=== PATIENT | male | born 1945 | race Caucasian/White ===

== ENCOUNTER → 2016-05-01 | Outpatient (CLI) | payer OTHER ==
[~2016-05-01] MED LIST: AMLO-114 PO; CZR50 PO; IBUP-1277 PO; OFLO0.3S OPR; PRLSR20 PO
== END | disposition home or self-care (01) ==
LOC: C.RDSM 07:28
PROVIDERS: ATTEND Physical Medicine & Rehabilitation Sports Medicine
DX: M17.0 Bilateral primary osteoarthritis of knee (principal)

== ENCOUNTER → 2017-04-30 | Outpatient (CLI) | payer OTHER | END | disposition home or self-care (01) | LOC: C.RDSM 19:12 | PROVIDERS: ATTEND Physical Medicine & Rehabilitation Sports Medicine | DX: M17.0 Bilateral primary osteoarthritis of knee (principal) ==

== ENCOUNTER 2019-02-11 06:26 | Inpatient (IN) ==
--- OUTSIDE RECORDS SUMMARY | 2019-02-11 06:28 | External Medical Summary | Continuity of Care Document ---
:1945 Author Name Natasha Warner, Provider Address Unavailable Unavailable , Care Team Providers Name Role Phone Ike [email or web address] MACKENZIE PEREZ Unavailable Unavailable Problems Hypertension (401.9) (I10) Never a smoker Sensorineural hearing loss of both ears (389.18) (H90.3) Dysfunction of both eustachian tubes (381.81) (H69.83) Allergies and Adverse Reactions Lipitor (Allergy) Medications amLODIPine Besylate 5 MG Oral Tablet; TAKE 1 TABLET DAILY. Refills: 0 Omeprazole 20 MG Oral Tablet Delayed Release; Take 1 tablet daily Refills: 0 Vitamin E 400 UNIT Oral Tablet; TAKE 1 TABLET DAILY. Refills: 0 Ibuprofen 800 MG Oral Tablet; prn Refills: 0 Procedures History of appendectomy Status: Complete d History of Knee Surgery Status: Complete d History of cyst excision Status: Complet ed Immunizations Immunizations not documented Family History Mother No pertinent family history (V49.89) (Z78.9) Status: Active Father No pertinent family history (V49.89) (Z78.9) Status: Active Social History - Smoking Status Never smoker Plan of Treatment Planned Observations Planned Goals not documented Results No Known Results Results not documented Encounters Appointment; Ike Lakhani M.D. 04-Mar-2018 14:00 Encounter Diagnosis: Problem not documented Appointment; Isidro Buckner Au.D.|CCC-A 04-Mar-2018 13:40 Encounter Diagnosis: Problem not documented Appointment; Ike Lakhani M.D. 04-Sep-2018 11:00 Encounter Diagnosis: Problem not documented"
[2019-02-11] MEDS ORDERED: TAMSULOSIN HCL 0.4 MG CAP PO ONE (07:12)
[2019-02-11] MEDS ORDERED: CIPROFLOXACIN 500 MG TAB PO STA (07:12)
[2019-02-11] MEDS ORDERED: ONDANSETRON INJ 2 MG/ML 2 ML VIAL IV STA (07:40)
[2019-02-11] MEDS ORDERED: HYDROmorphone INJ 0.5 MG/0.5 ML SYR IV PRN (07:40)
[2019-02-11 07:42] LABS: Appearance Urine Turbid (Clear); Color Urine Red; Protein Urine Positive (Negative); Specific Gravity Urine 1.016 (1.000-1.030); Sulfosalicylic Acid Urine Positive (Negative)
[2019-02-11 07:46] LABS: RBC Urine >30 /hpf (0-4)
[2019-02-11 07:47] LABS: Bacteria Urine Negative (Negative); WBC Urine >30 /hpf (0-5)
--- NOTE | 2019-02-11 07:57 | CT Scan Report ---
CT SCAN OF THE ABDOMEN AND PELVIS WITHOUT CONTRAST CLINICAL HISTORY: Hematuria COMPARISON STUDY: November 13, 2007 TECHNIQUE: CT scan of the abdomen and pelvis was performed from the lung bases to the proximal femurs . Images are reviewed in the axial, sagittal, and coronal planes. IV contrast was not administered fo r this examination. A dose lowering technique was utilized adhering to the principles of ALARA. CT DOSE: 973.34 mGy.cm FINDINGS: Lower chest: There is a subtle ill-defined area of groundglass parenchymal distortion within the righ t lower lobe. There are no significant pleural effusions. Liver: There is a 5 mm right lobe hypodensity, likely representing a cyst. Gallbladder: Cholelithiasis. Spleen: Normal in size and attenuation. Pancreas: Unremarkable. Adrenal glands: Unremarkable. Kidneys: There are bilateral indeterminate hyperdense exophytic renal lesions, the largest of which m easures 11 mm. A dedicated renal MRI study is recommended in follow-up. No renal calculi are visualiz ed. There is a 5 mm left renal parenchymal calcification. There is mild dilatation of both renal singh ecting systems, a finding which may in part be secondary to a distended urinary bladder. No ureteral calculi are visualized. Bowel: There are no transition zone to indicate bowel obstruction. There is no evidence of acute dive rticulitis. There are no findings to indicate acute appendicitis. Peritoneum: There is no intraperitoneal free air or abdominal ascites. Vasculature: The abdominal aorta is normal in course and caliber. Adenopathy: None. Pelvic viscera: The prostate is enlarged. There is an indwelling Peres catheter. There is extensive h yperdense material within the bladder, likely representing hemorrhage. Underlying mass cannot be excl uded. Urologic consultation is recommended. Skeletal structures: No destructive osseous lesions are seen. IMPRESSION: 1. Distended urinary bladder with secondary mild hydroureteronephrosis 2. Indwelling Peres catheter 3. Extensive hyperdense material within the bladder, consistent with hemorrhage. Underlying mass ember ot be excluded. Urological consultation is recommended in follow-up 4. Small bilateral indeterminate hyperdense renal lesions. The largest measures 11 mm. A dedicated re nal MRI is recommended in follow-up 5. Cholelithiasis 6. No evidence of bowel obstruction. No evidence of free air ACT 112: Negative or not required by law. Electronically signed by: Henry Márquez M.D. 02/11/2019 7:56 AM
[2019-02-11 08:04] LABS: Basophils # (auto) 0.06 K/uL (0-0.2); Basophils % (auto) 0.4 %; Eosinophils # (auto) 0.38 K/uL (0-0.5); Eosinophils % (auto) 2.3 %; Hematocrit (blood only) 39.1 % (42-52); Hemoglobin 13.3 g/dL (14.0-18.0); Immature Granulocytes # (auto) 0.06 K/uL (0.00-0.02); Immature Granulocytes % (auto) 0.4 %; Lymphocytes # (auto) 2.77 K/uL (1.2-3.4); Lymphocytes % (auto) 16.5 %; Mean Corpuscular Hemoglobin 29.8 pg (25-34); Mean Corpuscular Volume 87.7 fL (80-100); Mean Platelet Volume 8.3 fL (7.4-10.4); Monocytes # (auto) 0.94 K/uL (0.11-0.59); Monocytes % (auto) 5.6 %; Neutrophils % (auto) 74.8 %; Platelet Count 300 K/uL (130-400); RDW Coefficient of Variation 13.1 % (11.5-14.5); RDW Standard Deviation 42.2 fL (36.4-46.3); Red Blood Count 4.46 M/uL (4.7-6.1); White Blood Count 16.81 K/uL (4.8-10.8)
[2019-02-11 08:20] LABS: Albumin Level 3.8 gm/dl (3.4-5.0); BUN Creatinine Ratio 14.8 (10-20); Calcium 9.3 mg/dl (8.5-10.1); Creatinine Clr Calc Pharmacy 71.3 ml/min; Est GFR (African American) 76.5; Potassium 3.6 mmol/L (3.5-5.1)
[2019-02-11 08:23] LABS: Albumin Globulin Ratio 1.1 (0.9-2); Bilirubin,Total 0.7 mg/dl (0.2-1); Globulin 3.4 gm/dl (2.5-4.0); Total Protein 7.2 gm/dl (6.4-8.2)
[2019-02-11] MEDS ORDERED: HYDROmorphone INJ 1 MG/ML SYRINGE IV STA (08:33)
[2019-02-11] MEDS ORDERED: ACETAMINOPHEN 1,000 MG/100 ML VIAL IV STA (08:35)
[2019-02-11] MEDS ORDERED: LORazepam 1 MG/2 ML VIAL IV STA (09:19)
--- NOTE | 2019-02-11 09:35 | History & Physical Report ---
Date of Service February 11, 2019 Assessment & Plan (1) Hematuria: Mr. Zendejas is a 73-year-old male who has significant past medical history of HTN, HLD, GERD, OA who presents to [facility] ED secondary to hematuria x1 day. admit to med/surg urology services consulted - await for their input continue NPO until seen and evaluated by urology catheter in place with irrigation in ED, 2200ml outpt IV morphine 4mg q4hr prn severe pain monitor H&H 2/2 to blood loss from hemorrhage in bladder CT scan abd/pelvis recommend b/l renal MRI - will wait to order until seen and evaluated by urology (2) Leukocytosis: wbc 16.8k no s/sx of infection monitor cbc (3) Proteinuria, unspecified: Patient with evidence of significant proteinuria in outpatient setting On 03/11/2018 protein to creatinine ratio 500, 09/20/2018 1000, 01/08/2019 urine protein 24hrs 2464 discussed with attending, consult nephrology baseline cr 1.1 (4) Constipation: Patient last BM 4 days ago, which is unusual for him Start bowel regimen of Miralax and senna once patient no longer NPO (5) Hypertension: continue amlodipine and lisinopril with approp hold parameters monitor (6) HLD (hyperlipidemia): continue crestor (7) GERD (gastroesophageal reflux disease): continue PPI (8) DVT prophylaxis: SCD/TEDS, no chemoprophylaxis in setting of active bleeding Disposition: admit to med/surg Follow up: PCP Dr. Koehler upon discharge along with appropriate urology and nephrology follow up Pt was seen and examined in collaboration with Dr. Torres, please see addendum History of Present Illness Chief Complaint: Hematuria x1 day. Primary Care Provider: Symone Koehler, Mr. Zendejas is a 73-year-old male who has significant past medical history of HTN, HLD, GERD, OA who presents to [facility] ED secondary to hematuria x1 day. He elicits over the past 3 to 4 days he noticed a pink- colored urine which he attributed to drinking cranberry juice. When he woke up this morning and tried to urinate he had ammon blood. He also elicits over the past 3 to 4 days increased urgency and frequency with urination. He denies ever having something similar in the past. He denies any flank pain, abdominal pain, dysuria, fever, sweats, lightheadedness, dizziness, syncope, chest pain, shortness breath, palpitations, nausea, vomiting. He does admit to chills. Appetite has otherwise been normal. Last BM was 4 days ago which is unusual per patient. Approximately 3 days ago he did have significant acid reflux and did take Pepto-Bismol which occasionally constipates him. He continues to complain of feeling like he has to urinate despite Velasquez catheter being present. He denies any weight loss or weight gain. Has a prior history of tobacco abuse with smokeless tobacco but quit in . He denies any alcohol use. His family history is unknown, "I left home at the age of 20, so I do not know." He denies any personal history of any recurrent UTIs, BPH, prostate cancer. He does have a history of basal cell carcinoma which was removed locally. He does have a history of hypertension in which he does monitor her but his blood pressure at home. He does have a log with him on his phone. His blood pressures consistently in the 120s over 80s. He recently was placed on lisinopril approximately 4 months ago. He feels like ever since being started on this medication he has noticed a change in his urinary habits. He stopped taking this medication approximately 3 to 4 days ago, and now his symptoms have significantly worsened. He does elicit he is very active at baseline. He is able to walk a flight of stairs or 4 city blocks without any chest pain or shortness breath. "I could walk 4 to 5 miles without any chest pain or shortness of breath." In ED nurse states she had significant difficulty placing Velasquez. A triple-lumen had to be placed with continuous irrigation. Upon my evaluation patient had 2200ml hematuria drained. Upon initial evaluation H&H 13.3 and 39.1, WBC 16.8 1K, platelet 300, sodium 133, K3.6, BUN 16, creatinine 1.11, glucose 188. Urinalysis significant for protein, plus RBC and WBC, called to interpret secondary to turbidity. CT abdomen pelvis performed which revealed: Distended urinary about bladder with secondary mild hydroureteronephrosis, extensive hyperdense material within the bladder consistent with hemorrhage, underlying mass cannot be excluded. Small bilateral indeterminate hypodense renal lesions, largest measuring 11 mm. A dedicated renal MRI is recommended. He received oral Cipro 500 mg, 1.5 mg IV Dilaudid, 1 g IV Tylenol, 0.4 mg Flomax and IV Zofran while in ED. Allergies Allergy/AdvReac Type Severity Reaction Status Date / Time atorvastatin Allergy Mild Unknown Verified 02/11/19 06:43 Home Medications Home Medications Medication Instructions Recorded Confirmed Type amlodipine 10 mg PO DAILY 02/11/19 02/11/19 History lisinopril 5 mg PO DAILY 02/11/19 02/11/19 History omeprazole 20 mg PO DAILY 02/11/19 02/11/19 History rosuvastatin 5 mg PO DAILY 02/11/19 02/11/19 History Past Med/Surg History Medical History GERD (gastroesophageal reflux disease) History of Mohs micrographic surgery for skin cancer HLD (hyperlipidemia) Hypertension Osteoarthritis Surgical History (Updated 02/11/19 @ 09:31 by Mone Grossman PA-C) History of appendectomy History of cataract extraction History of colonoscopy Status post meniscectomy Family History Other Unknown family medical history Social History (Updated 02/11/19 @ 09:36 by Mone Grossman PA-C) Preferred Language: Swazi Communication Ability: Effective marital status: Current Living Situation: Spouse Feels Safe at Home: Yes Smoking Status: Former smoker Tobacco Type: smokeless tobacco ; Hx Alcohol Use: No Hx Substance Use: No Review of Systems Review of Systems: All systems reviewed & are unremarkable except as noted in HPI & below Physical Exam Physical Exam: Constitutional: WD/WN, vitals as above, NAD, sitting up in bed, pleasant, conversing easily Head: Normocephalic, Atraumatic Eyes: PERRL, conjunctivae normal, anicteric sclerae ENMT: external ear and nose normal, oropharynx normal Neck: trachea midline, no thyromegaly normal visual inspection Respiratory: normal respiratory effort, lungs clear to auscultation, no wheeze, rales, rhonchi. Normal insp/exp effort, no accessory muscle use Cardiovascular: RRR, no murmur, no edema Vessels: no JVD or carotid bruit Chest: normal inspection of chest Abdomen: firm, mildly distended, tender to palpation throughout, "it makes me feel like I have to urinate," +BSx4, no hepatosplenomegaly, no rebound, guarding, rigidity Musculoskeletal: no cyanosis or clubbing, extremities motor strength 5/5 Skin: no rashes, warm and dry normal turgor Neurologic: PERRL, EOMI, accommodation nl, no face palsy, no dysarthria CN's II-XI intact bilaterally and moves all extremities Psychiatric: A+Ox3, euthymic affect Lymphatic: no cervical or axillary lymphadenopathy : +velasquez cath in place drainage bloody urine Results & Data Vital Signs (Past 12 Hours) Vital Signs Pulse Pulse Resp BP BP Pulse Ox 02/11/19 07:45 105 H 18 145/101 H 97 02/11/19 06:33 106 H 22 182/100 H 97 Laboratory Results Short CBC 02/11/19 02/11/19 Range/Units 06:46 07:57 WBC 16.81 H (4.8-10.8) K/uL Hgb 13.3 L (14.0-18.0) g/dL Hct 39.1 L (42-52) % Plt Count 300 (130-400) K/uL Urine Appearance Turbid A (Clear) BMP 02/11/19 07:57 Sodium 133 L Potassium 3.6 Chloride 102 Carbon Dioxide 23 BUN 16 Creatinine 1.11 Glucose 180 H Calcium 9.3 Liver Function 02/11/19 Range/Units 07:57 Total Bilirubin 0.7 (0.2-1) mg/dl AST 14 L (15-37) U/L ALT 17 (12-78) U/L Alkaline Phosphatase 71 (45-117) U/L Albumin 3.8 (3.4-5.0) gm/dl Urine 02/11/19 Range/Units 06:46 Urine Color Red Urine Appearance Turbid A (Clear) Urine pH (4.5-7.5) Ur Specific [place] 1.016 (1.000-1.030) Urine Protein Positive H (Negative) Urine Glucose (UA) (Negative) Diagnostic Findings CT abd/Pelvis: IMPRESSION: 1. Distended urinary bladder with secondary mild hydroureteronephrosis 2. Indwelling Velasquez catheter 3. Extensive hyperdense material within the bladder, consistent with hemorrhage. Underlying mass cannot be excluded. Urological consultation is recommended in follow-up 4. Small bilateral indeterminate hyperdense renal lesions. The largest measures 11 mm. A dedicated renal MRI is recommended in follow-up 5. Cholelithiasis 6. No evidence of bowel obstruction. No evidence of free air Medications Administered Hydromorphone HCl (Dilaudid) 0.5 mg IV Q15M PRN PRN Reason: Pain Stop: 02/25/19 07:39 Last Admin: 02/11/19 07:56 Dose: 0.5 mg Documented by: [id number] Discontinued Medications Ciprofloxacin (Cipro) 500 mg PO NOW STA Stop: 02/11/19 07:13 Last Admin: 02/11/19 07:19 Dose: 500 mg Documented by: [id number] Hydromorphone HCl (Dilaudid) 1 mg IV NOW STA Stop: 02/11/19 08:34 Last Admin: 02/11/19 08:38 Dose: 1 mg Documented by: [id number] Acetaminophen (Ofirmev) 1,000 mg in 100 mls @ 400 mls/hr IV NOW STA Stop: 02/11/19 08:49 Last Infusion: 02/11/19 09:00 Dose: 0 mls/hr Documented by: [id number] Admin: 02/11/19 08:38 Dose: 400 mls/hr Documented by: [id number] Lorazepam (Ativan) 1 mg in 2 mls @ 2 mls/min IV NOW STA Stop: 02/11/19 09:20 Last Admin: 02/11/19 09:37 Dose: 2 mls/min Documented by: [id number] Ondansetron HCl (Zofran) 4 mg IV NOW STA Stop: 02/11/19 07:41 Last Admin: 02/11/19 07:56 Dose: 4 mg Documented by: [id number] Tamsulosin HCl (Flomax) 0.4 mg PO NOW ONE Stop: 02/11/19 07:13 Last Admin: 02/11/19 07:19 Dose: 0.4 mg Documented by: [id number] Code Status & VTE Plan Code Status Full Code VTE Prophylaxis Plan VTE Prophylaxis will be ordered: Yes Reason for no VTE drug order: Contraindicated
[2019-02-11] MEDS ORDERED: GLUCAGON FOR INJ 1 MG VIAL SQ PRN (10:58)
[2019-02-11] MEDS ORDERED: GLUCOSE 40% GEL 15 GM TUBE PO PRN (10:58)
[2019-02-11] MEDS ORDERED: CARBOHYDRATES FOR HYPOGLYCEMIA PO PRN (10:58)
[2019-02-11] MEDS ORDERED: GLUCOSE 10 TABS/TUBE PO PRN (10:58)
[2019-02-11] MEDS ORDERED: DEXTROSE 50% 50 ML SYRINGE IV PRN (10:58)
[2019-02-11] MEDS ORDERED: MoRPHine SULFATE 4 MG/ML 1 ML CARP\\VIAL IV PRN (10:58)
[2019-02-11] MEDS ORDERED: AMLODIPINE BESYLATE 5 MG TAB PO SCH (10:58)
[2019-02-11] MEDS: AMLODIPINE BESYLATE 5 MG TAB PO SCH (12:58)
[2019-02-11 13:18] LABS: Hematocrit (blood only) 37.5 % (42-52); Hemoglobin 12.6 g/dL (14.0-18.0)
--- NOTE | 2019-02-11 13:57 | Electrocardiogram Report ---
Test Reason : Blood Pressure : / mmHG Vent. Rate : 079 BPM Atrial Rate : 079 BPM P-R Int : 198 ms QRS Dur : 088 ms QT Int : 386 ms P-R-T Axes : 063 079 044 degrees QTc Int : 442 ms Normal sinus rhythm Septal infarct , age undetermined Nonspecific T wave abnormality Abnormal ECG When compared with ECG of 13-NOV-2007 20:33, Non-specific change in ST segment in Lateral leads Nonspecific T wave abnormality, improved in Lateral leads Confirmed by Denton Child ([id number]) on 02/11/2019 1:57:10 PM Referred By: REFERRED SELF Confirmed By:Denton Child
--- NOTE | 2019-02-11 14:32 | XRay Report ---
XR chest 1V portable HISTORY: pre-op COMPARISON: Chest CT 12/21/2009. FINDINGS: The lungs are clear. Cardiac silhouette is normal in size. No pleural effusions. No pneumot horax. IMPRESSION: No acute process. ACT 112: Negative or not required by law. Electronically signed by: Mark Kearney M.D. 02/11/2019 2:31 PM
--- NOTE | 2019-02-11 14:46 | Emergency Department Note ---
Entered by Deng Shaw acting as a scribe for History of Present Illness General Chief complaint: Urinary Symptoms Stated complaint: PEEING BLOOD,CONSTIPATED Time Seen by Provider: 02/11/19 06:39 Source: patient History of Present Illness Provider complaint: Urinary symptoms Onset (ago): day(s) 1 Location: abdomen Pain Consistency: + constant Relieved By: + none Associated symptoms: + other (Hematuria, increased urinary frequency, Pressure); no fever/chills The patient is a 73 year old male who presents to the Emergency Room with complaints of constant urinary symptoms that started yesterday. The patient reports that last evening he noticed a gross amount of blood in his urine. He also started to have increased urgency and was dribbling blood. The patient states he woke up this morning and there was more blood in his urine than yesterday. He endorses some lower abdominal pressure but denies any overt abdominal pain. The patient also relates that he has been constipated, having not moved his bowels for the past 2 days. The patient mentioned that last week he lifted a 250lbs AC unit. The patient denies any fevers or chills. Home Medications Home Medications Medication Instructions Recorded Confirmed Type omeprazole 20 mg PO DAILY 02/11/19 02/11/19 History rosuvastatin 5 mg PO DAILY 02/11/19 02/11/19 History amlodipine PO DAILY 02/12/19 History lisinopril PO 02/12/19 History Allergies Allergy/AdvReac Type Severity Reaction Status Date / Time atorvastatin Allergy Mild Unknown Verified 02/11/19 06:43 Past Med/Surg History Medical History GERD (gastroesophageal reflux disease) History of Mohs micrographic surgery for skin cancer HLD (hyperlipidemia) Hypertension Osteoarthritis Surgical History History of appendectomy History of cataract extraction History of colonoscopy Status post meniscectomy Family History Other Unknown family medical history Social History Preferred Language: Iranian Communication Ability: Effective Manager Target Required: No Beliefs That Will Affect Care: None marital status: Current Living Situation: Spouse Other Information That Helps Us Care for You: No Feels Safe at Home: Yes Safety Concerns: Feels Safe At This Time Smoking Status: Never smoker Tobacco Type: smokeless tobacco ; Hx Alcohol Use: No Hx Substance Use: No Review of Systems See HPI for pertinent positives & negatives. and A total of 10 systems reviewed and were otherwise negative Physical Exam Vital Signs Vital Signs - 24 hr 02/11/19 06:33 02/11/19 07:45 Temperature Source Oral Pulse Rate 106 H Pulse Rate [Finger] 105 H Respiratory Rate 22 18 Respiratory Depth Normal Normal Blood Pressure 182/100 H Blood Pressure [Right Arm] 145/101 H Blood Pressure Mean 127 Blood Pressure Mean [Right Arm] 115 Pulse Oximetry 97 97 Oxygen Delivery Method Room Air Room Air Sepsis Recent Fever Within 48 Hours No Sepsis New/Unexplained Change in Mental Status No Sepsis Action Taken by Nursing No Action Required GENERAL: Awake, alert, uncomfortable-appearing, pacing around the room. HENT: Normocephalic, atraumatic. Oropharynx unremarkable. EYES: Normal conjunctiva. Sclera non-icteric. NECK: Supple. No nuchal rigidity. FROM. No masses. RESPIRATORY: Clear to auscultation. No wheezes. No rales. Normal respiratory effort. CARDIAC: Normal rate. Normal rhythm. No murmurs. No rubs. Extremities warm and well perfused. Pulses equal. No JVD. GI: Soft, non-distended. Tenderness to the suprapubic region. No rebound or guarding. No masses. RECTAL: Deferred. MUSCULOSKELETAL: Atraumatic. Chest examination reveals no tenderness. The back is symmetrical on inspection without obvious abnormality. There is no CVA tenderness to palpation. No joint edema. LOWER EXTREMITIES: Calves are equal size bilaterally and non-tender. No edema. No discoloration. NEURO: Normal sensorium. No sensory or motor deficits noted. Course Course 0710: Past medical records reviewed. The patient was evaluated in room B02, and a complete history and physical examination were performed. 0745: I spoke to Julia CHERY about the patient's case and she is going to come evaluate him. 0803: The patient was placed on constant bladder irrigation after the bladder scan revealed a full bladder. 0827: I discussed the patient's case with [facility] PAC under Dr. Brian Ricks. They agreed to accept the patient for further evaluation. Consultations Consultation #1: I spoke to Julia Espinosa - [facility] CHERY about the patient's case and she is going to come evaluate him. Time: 07:45 Consultation #2: I discussed the patient's case with [facility] PAC under Dr. Brian Ricks. They agreed to accept the patient for further evaluation. Time: 08:27 Administered Medications Amlodipine Besylate (Norvasc) 10 mg PO DAILY [facility] Stop: 03/13/19 11:29 Last Admin: 02/12/19 08:57 Dose: 10 mg Documented by: [id number] Admin: 02/11/19 12:58 Dose: 10 mg Documented by: [id number] Lisinopril (Zestril) 5 mg PO DAILY [facility] Stop: 03/14/19 08:59 Last Admin: 02/12/19 08:57 Dose: 5 mg Documented by: [id number] Morphine Sulfate (Morphine Sulfate) 4 mg IV Q4H PRN PRN Reason: Severe Pain Stop: 02/25/19 10:57 Last Admin: 02/11/19 14:36 Dose: 4 mg Documented by: [id number] Pantoprazole Sodium (Protonix) 40 mg PO DAILY [facility]; Protocol Stop: 03/14/19 08:59 Last Admin: 02/12/19 08:57 Dose: 40 mg Documented by: [id number] Rosuvastatin Calcium (Crestor) 5 mg PO DAILY [facility] Stop: 03/14/19 08:59 Last Admin: 02/12/19 08:57 Dose: 5 mg Documented by: [id number] Discontinued Medications Belladonna Alkaloids/Opium (B & O Adult) 60 mg HI ONCE ONE Stop: 02/11/19 18:41 Last Admin: 02/11/19 19:44 Dose: Not Given Documented by: [id number] Ciprofloxacin (Cipro) 500 mg PO NOW STA Stop: 02/11/19 07:13 Last Admin: 02/11/19 07:19 Dose: 500 mg Documented by: [id number] Ciprofloxacin (Cipro) Confirm Administered Dose 400 mg IV .STK-MED ONE Stop: 02/11/19 15:01 Last Admin: 02/11/19 19:43 Dose: Not Given Documented by: [id number] Hydromorphone HCl (Dilaudid) 0.5 mg IV Q15M PRN PRN Reason: Pain Stop: 02/25/19 07:39 Last Admin: 02/11/19 07:56 Dose: 0.5 mg Documented by: [id number] Hydromorphone HCl (Dilaudid) 1 mg IV NOW STA Stop: 02/11/19 08:34 Last Admin: 02/11/19 08:38 Dose: 1 mg Documented by: [id number] Acetaminophen (Ofirmev) 1,000 mg in 100 mls @ 400 mls/hr IV NOW STA Stop: 02/11/19 08:49 Last Infusion: 02/11/19 09:00 Dose: 0 mls/hr Documented by: [id number] Admin: 02/11/19 08:38 Dose: 400 mls/hr Documented by: [id number] Lorazepam (Ativan) 1 mg in 2 mls @ 2 mls/min IV NOW STA Stop: 02/11/19 09:20 Last Admin: 02/11/19 09:37 Dose: 2 mls/min Documented by: [id number] Ciprofloxacin (Cipro) 400 mg in 200 mls @ 100 mls/hr IV PREOP [facility]; Protocol Stop: 02/11/19 23:59 Last Infusion: 02/11/19 17:16 Dose: 0 mls/hr Documented by: [id number] Admin: 02/11/19 15:16 Dose: 100 mls/hr Documented by: [id number] Sodium Chloride (Nss 1000ml) 1,000 mls @ 100 mls/hr IV .Q10H [facility] Stop: 02/12/19 06:59 Last Infusion: 02/12/19 07:57 Dose: 0 mls/hr Documented by: [id number] Infusion: 02/12/19 06:49 Dose: 100 mls/hr Documented by: [id number] Admin: 02/11/19 22:15 Dose: 100 mls/hr Documented by: [id number] Ondansetron HCl (Zofran) 4 mg IV NOW STA Stop: 02/11/19 07:41 Last Admin: 02/11/19 07:56 Dose: 4 mg Documented by: [id number] Tamsulosin HCl (Flomax) 0.4 mg PO NOW ONE Stop: 02/11/19 07:13 Last Admin: 02/11/19 07:19 Dose: 0.4 mg Documented by: [id number] Critical Care Time I have personally spent greater than 30 minutes of critical care time in the direct management of this patient. This includes bedside care, interpretation of diagnostic studies, and testing, discussion with consultants, patient, and family members, and other required patient management activities. This 30 minutes is in excess of all separately billable procedures. Medical Decision Making Differential Diagnosis Differential: UTI, Urethritis, Pyelonephritis, Renal colic, Bladder cancer, Hyperglycemia, amongst other pathologies entertained. Medical Records Attestation: I reviewed the patient's medical records. Home Medications Current Medication List: was personally reviewed by me Laboratory Data Attestation: I reviewed the patient's lab results. Result diagrams: 02/13/19 06:39 02/12/19 06:13 Lab Results 02/11/19 02/11/19 02/11/19 Range/Units 06:46 07:57 07:57 WBC 16.81 H (4.8-10.8) K/uL RBC 4.46 L (4.7-6.1) M/uL Hgb 13.3 L (14.0-18.0) g/dL Hct 39.1 L (42-52) % MCV 87.7 (80-100) fL MCH 29.8 (25-34) pg MCHC 34.0 (32-36) g/dL RDW Std Deviation 42.2 (36.4-46.3) fL RDW Coeff of Ruy 13.1 (11.5-14.5) % Plt Count 300 (130-400) K/uL MPV 8.3 (7.4-10.4) fL Immature Gran % (Auto) 0.4 % Neut % (Auto) 74.8 % Lymph % (Auto) 16.5 % [place] % (Auto) 5.6 % Eos % (Auto) 2.3 % Baso % (Auto) 0.4 % Immature Gran # (Auto) 0.06 H (0.00-0.02) K/uL Neut # (Auto) 12.60 H (1.4-6.5) K/uL Lymph # (Auto) 2.77 (1.2-3.4) K/uL [place] # (Auto) 0.94 H (0.11-0.59) K/uL Eos # (Auto) 0.38 (0-0.5) K/uL Baso # (Auto) 0.06 (0-0.2) K/uL Sodium 133 L (136-145) mmol/L Potassium 3.6 (3.5-5.1) mmol/L Chloride 102 (98-107) mmol/L Carbon Dioxide 23 (21-32) mmol/L Anion Gap 8.0 (3-11) BUN 16 (7-18) mg/dl Creatinine 1.11 (0.6-1.4) mg/dl Est Cr Clr Drug Dosing 71.3 ml/min Est GFR ( Amer) 76.5 Est GFR (Non-Af Amer) 66.0 BUN/Creatinine Ratio 14.8 (10-20) Glucose 180 H (70-99) mg/dl Calcium 9.3 (8.5-10.1) mg/dl Total Bilirubin 0.7 (0.2-1) mg/dl AST 14 L (15-37) U/L ALT 17 (12-78) U/L Alkaline Phosphatase 71 (45-117) U/L Total Protein 7.2 (6.4-8.2) gm/dl Albumin 3.8 (3.4-5.0) gm/dl Globulin 3.4 (2.5-4.0) gm/dl Albumin/Globulin Ratio 1.1 (0.9-2) Lipase 147 (73-393) U/L Urine Color Red Urine Appearance Turbid A (Clear) Urine pH (4.5-7.5) Ur Specific [place] 1.016 (1.000-1.030) Urine Protein Positive H (Negative) Urine Glucose (UA) (Negative) Urine Ketones (Negative) Urine Blood (Negative) Urine Nitrite (Negative) Urine Bilirubin (Negative) Urine Urobilinogen (Negative) Ur Leukocyte Esterase (Negative) Urine RBC >30 H (0-4) /hpf Urine WBC >30 H (0-5) /hpf Ur Epithelial Cells 5-10 H (0-5) /lpf Urine Bacteria Negative (Negative) Imaging Data Radiologist's Impression: Radiology results as stated below per my review and the radiologist's interpretation: CT SCAN OF THE ABDOMEN AND PELVIS WITHOUT CONTRAST CLINICAL HISTORY: Hematuria COMPARISON STUDY: November 13, 2007 TECHNIQUE: CT scan of the abdomen and pelvis was performed from the lung bases to the proximal femurs. Images are reviewed in the axial, sagittal, and coronal planes. IV contrast was not administered for this examination. A dose lowering technique was utilized adhering to the principles of ALARA. CT DOSE: 973.34 mGy.cm FINDINGS: Lower chest: There is a subtle ill-defined area of groundglass parenchymal distortion within the right lower lobe. There are no significant pleural effusions. Liver: There is a 5 mm right lobe hypodensity, likely representing a cyst. Gallbladder: Cholelithiasis. Spleen: Normal in size and attenuation. Pancreas: Unremarkable. Adrenal glands: Unremarkable. Kidneys: There are bilateral indeterminate hyperdense exophytic renal lesions, the largest of which measures 11 mm. A dedicated renal MRI study is recommended in follow-up. No renal calculi are visualized. There is a 5 mm left renal parenchymal calcification. There is mild dilatation of both renal collecting systems, a finding which may in part be secondary to a distended urinary bladder. No ureteral calculi are visualized. Bowel: There are no transition zone to indicate bowel obstruction. There is no evidence of acute diverticulitis. There are no findings to indicate acute appendicitis. Peritoneum: There is no intraperitoneal free air or abdominal ascites. Vasculature: The abdominal aorta is normal in course and caliber. Adenopathy: None. Pelvic viscera: The prostate is enlarged. There is an indwelling Peres catheter. There is extensive hyperdense material within the bladder, likely representing hemorrhage. Underlying mass cannot be excluded. Urologic consultation is recomm ended. Skeletal structures: No destructive osseous lesions are seen. IMPRESSION: 1. Distended urinary bladder with secondary mild hydroureteronephrosis 2. Indwelling Peres catheter 3. Extensive hyperdense material within the bladder, consistent with hemorrhage. Underlying mass cannot be excluded. Urological consultation is recommended in follow-up 4. Small bilateral indeterminate hyperdense renal lesions. The largest measures 11 mm. A dedicated renal MRI is recommended in follow-up 5. Cholelithiasis 6. No evidence of bowel obstruction. No evidence of free air ACT 112: Negative or not required by law. Electronically signed by: Henry Márquez M.D. 02/11/2019 7:56 AM Blood Pressure Blood Pressure Findings: Elevated blood pressure Blood Pressure Disposition: further management by hospitalist KEO Michaels This is a 73-year-old male who presents the emergency department complaining of hematuria. Due to the nature of the patient's complaint as well as the fact he cannot get comfortable a Peres catheter was placed. We attempted to irrigate and pull multiple clots out of the catheter until it clogged. At this point I did discuss the case with urology and the decision was made to place a continuous irrigation Peres. Continuous irrigation was started. The patient was then re-discussed with urology. An IV was established, the patient was given Dilaudid as well as Ativan for his pain. I also discussed the case with the hospitalist service who did agree to admit the patient. Patient and are in agreement with the treatment plan. Impression & Plan Hematuria, Abdominal pain Discharge Plan Visit Data *Final* Discharge Date/Time: 02/11/19 10:35 Chief Complaint: Urinary Symptoms Stated Complaint: PEEING BLOOD,CONSTIPATED ED Provider: Jose Valencia Discharge Problem: Hematuria, Abdominal pain Patient Disposition: Admitted As Inpatient Discharge Instructions Interventions: ED Discharge Assessment Last Done: 02/11/19 10:35 Discharge Problem: Hematuria Qualifiers: Hematuria type: unspecified type Qualified Code(s): R31.9 - Hematuria, unspecified Abdominal pain Qualifiers: Abdominal location: unspecified location Qualified Code(s): R10.9 - Unspecified abdominal pain The scribe's documentation has been prepared under my direction and personally reviewed by me in its entirety. I confirm that the note above accurately reflects all work, treatment, procedures, and medical decision making performed by me.
--- NOTE | 2019-02-11 14:48 | Urology Consultation ---
Date of Consultation February 11, 2019 Assessment & Plan (1) Hematuria: 73yo M with AUR, clot retention with CBI running. Pt is NPO, at bedside. Findings reviewed with Dr. Dillon. Given his significant hematuria, abdominal pain, repeated clotting of catheter, will proceed with OR urgently for cystoscopy, possible clot evacuation, possible fulguration. Risks and benefits to be reviewed with patient by Dr. Dillon. OR notified. Preoperative CXR and EKG completed. Will cover with IV Ciprofloxacin preoperatively. Irrigated bladder but bleeding heavily will take down to OR for clot evacuation and fulguration of bleeding . Went over consent w pt including need for transfusion reoperation or open operation for perforation Sammi Dillon History of Present Illness Reason for Consultation: hematuria, UR Requesting Physician: Dr. Bonilla Attending Physician: Mary Bonilla MD History of Present Illness 73yo M admitted via [facility] ER for hematuria, urinary retention x1 day with PMHx of HTN, HLD, GERD, OA. Woke up this AM and urinated ammon blood. Worsening urgency and frequency with urination over the past 3-4days. Denies flank or abdominal pain. Denies f/c/n/v. Denies SOB or CP. Denies hx of BPH or prostate cancer. Very active at baseline. In ED nurse states she had significant difficulty placing Velasquez. A triple-lumen had to be placed with continuous irrigation. Upon my evaluation patient had 2200ml hematuria drained. Upon initial evaluation H&H 13.3 and 39.1, WBC 16.8 1K, platelet 300, sodium 133, K3.6, BUN 16, creatinine 1.11, glucose 188. Urinalysis significant for protein, plus RBC and WBC, called to interpret secondary to turbidity. CT abdomen pelvis performed which revealed: Distended urinary about bladder with secondary mild hydroureteronephrosis, extensive hyperdense material within the bladder consistent with hemorrhage, underlying mass cannot be excluded. Small bilateral indeterminate hypodense renal lesions, largest measuring 11 mm. He received oral Cipro 500 mg, 1.5 mg IV Dilaudid, 1 g IV Tylenol, 0.4 mg Flomax and IV Zofran while in ED. at bedside. CBI running moderate rate, draining light pink. With slowing of CBI, hematuria worsened significantly. Pt developed worsening abdominal pain while evaluating pt this afternoon. Noticed to have worsening clot formation. IV pain medication administered by nursing and pt underwent hand irrigation by Dr. Dillon at bedside. Allergies Allergy/AdvReac Type Severity Reaction Status Date / Time atorvastatin Allergy Mild Unknown Verified 02/11/19 06:43 Home Medications Home Medications Medication Instructions Recorded Confirmed Type amlodipine 10 mg PO DAILY 02/11/19 02/11/19 History lisinopril 5 mg PO DAILY 02/11/19 02/11/19 History omeprazole 20 mg PO DAILY 02/11/19 02/11/19 History rosuvastatin 5 mg PO DAILY 02/11/19 02/11/19 History Patient History Medical History GERD (gastroesophageal reflux disease) History of Mohs micrographic surgery for skin cancer HLD (hyperlipidemia) Hypertension Osteoarthritis Surgical History History of appendectomy History of cataract extraction History of colonoscopy Status post meniscectomy Family History Other Unknown family medical history Social History Preferred Language: Divehi Communication Ability: Effective Pitch Gatherer Required: No Beliefs That Will Affect Care: None marital status: Current Living Situation: Spouse Other Information That Helps Us Care for You: No Feels Safe at Home: Yes Safety Concerns: Feels Safe At This Time Smoking Status: Never smoker Tobacco Type: smokeless tobacco ; Hx Alcohol Use: No Hx Substance Use: No Review of Systems Review of Systems: All systems reviewed & are unremarkable except as noted in HPI & below Physical Exam 2 Physical Exam: A&Ox3, frustrated no LE edema velasquez draining light pink - see HPI Results & Data Vital Signs (Past 12 Hours) Vital Signs Temp Pulse Pulse Resp BP BP Pulse Ox 02/11/19 10:50 36.5 C 76 16 131/79 95 02/11/19 10:35 87 16 82/56 L 93 02/11/19 09:20 86 20 167/90 H 97 02/11/19 07:45 105 H 18 145/101 H 97 02/11/19 06:33 106 H 22 182/100 H 97 PG Care Time/CCT Total # of Minutes Spent Total Time Spent with Patient: Total time spent is greater than 50% in coordination of care (as documented) at patient's floor/unit and/or counseling patient:
[2019-02-11] MEDS ORDERED: fentaNYL citrate 100 MCG/2 ML VIAL ONE (14:57)
[2019-02-11] MEDS ORDERED: ONDANSETRON INJ 2 MG/ML 2 ML VIAL ONE (14:57)
[2019-02-11] MEDS ORDERED: LIDOCAINE HCL 2% 2 ML VIAL/AMP(20MG/ML) INFIL ONE (14:57)
[2019-02-11] MEDS ORDERED: PROPOFOL IV EMULSION 10 MG/ML 20 ML VIAL IV ONE (14:57)
[2019-02-11] MEDS ORDERED: CIPROFLOXACIN 400MG / 200ML D5W IV ONE (15:00)
--- NOTE | 2019-02-11 15:10 | Anesthesiology Consultation ---
Date of Service February 11, 2019 Assessment & Plan (1) Encounter for pre-operative examination: Chart Review Chart Review: Acceptable Risk for Surgery and Patient NOT seen in Pre Admission Testing Consults Requested none History Surgery Operation Date: 02/11/19 12:30 Proposed Procedures p Cystoscopy with Clot Evacuation, Possible Fulguration - Prem Dillon MD Height/Weight Height: 5 ft 10 in Weight: 100 kg Allergies Allergy/AdvReac Type Severity Reaction Status Date / Time atorvastatin Allergy Mild Unknown Verified 02/11/19 06:43 Medications Home Medications Medication Instructions Recorded Confirmed Last Taken amlodipine 10 mg PO DAILY 02/11/19 02/11/19 Unknown lisinopril 5 mg PO DAILY 02/11/19 02/11/19 Unknown omeprazole 20 mg PO DAILY 02/11/19 02/11/19 Unknown rosuvastatin 5 mg PO DAILY 02/11/19 02/11/19 Unknown Active Medications Generic Name Dose Route Start Last Admin Trade Name Freq PRN Reason Stop Dose Admin Amlodipine Besylate 10 mg 02/11/19 11:30 02/11/19 12:58 Norvasc PO 03/13/19 11:29 10 mg DAILY [facility] Administration Morphine Sulfate 4 mg 02/11/19 10:58 02/11/19 14:36 Morphine Sulfate IV 02/25/19 10:57 4 mg Q4H PRN Administration Severe Pain NPO Date Last Intake of Fluids: 02/10/19 Time Last Intake of Fluids: 22:00 Date Last Intake of Solids: 02/10/19 Time Last Intake of Solids: 18:00 Past Medical History Medical History GERD (gastroesophageal reflux disease) History of Mohs micrographic surgery for skin cancer HLD (hyperlipidemia) Hypertension Osteoarthritis Past Family History Family History Other Unknown family medical history Past Surgical History Surgical History History of appendectomy History of cataract extraction History of colonoscopy Status post meniscectomy Social History Smoking Status: Never smoker tobacco type: smokeless tobacco Hx Alcohol Use: No Hx Substance Use: No Physical Exam Vital Signs Last Vital Signs Temp 36.5 C 02/11/19 10:50 Pulse 76 02/11/19 10:50 Resp 16 02/11/19 10:50 BP 131/79 02/11/19 10:50 Pulse Ox 95 02/11/19 10:50 Testing Laboratory Results 02/11/19 12:54 02/11/19 07:57 Urine Color Red 02/11/19 06:46 Urine Appearance Turbid (Clear) A 02/11/19 06:46 Urine pH (4.5-7.5) 02/11/19 06:46 Ur Specific [place] 1.016 (1.000-1.030) 02/11/19 06:46 Urine Protein Positive (Negative) H 02/11/19 06:46 Urine Glucose (UA) (Negative) 02/11/19 06:46 Urine Ketones (Negative) 02/11/19 06:46 Urine Nitrite (Negative) 02/11/19 06:46 Ur Leukocyte Esterase (Negative) 02/11/19 06:46 Urine RBC >30 /hpf (0-4) H 02/11/19 06:46 Urine WBC >30 /hpf (0-5) H 02/11/19 06:46 Ur Epithelial Cells 5-10 /lpf (0-5) H 02/11/19 06:46 Blood Type A Positive 02/11/19 09:35 Antibody Screen NEGATIVE 02/11/19 09:35 Electrocardiogram Date: 02/11/19 Findings: + NSR @ (79) septal infarct, nonspecific T wave abnormality, similar to prior EKG Chest X-Ray Date: 02/11/19 XR chest 1V portable HISTORY: pre-op COMPARISON: Chest CT 12/21/2009. FINDINGS: The lungs are clear. Cardiac silhouette is normal in size. No pleural effusions. No pneumothorax. IMPRESSION: No acute process. ACT 112: Negative or not required by law. Electronically signed by: Mark Kearney M.D. 02/11/2019 2:31 PM
[2019-02-11] MEDS ORDERED: CIPROFLOXACIN 400 MG/200 ML BAG IV SCH (15:15)
[2019-02-11] MEDS ORDERED: fentaNYL citrate 100 MCG/2 ML VIAL IV PRN (15:19)
[2019-02-11] MEDS ORDERED: LABETALOL HCL IV 5 MG/ML 20ML IV PRN (15:19)
[2019-02-11] MEDS ORDERED: ATROPINE SULFATE 0.1 MG/ML 10ML SYR IV PRN (15:19)
[2019-02-11] MEDS ORDERED: ONDANSETRON INJ 2 MG/ML 2 ML VIAL IV PRN (15:19)
[2019-02-11] MEDS ORDERED: PHENYLEPHRINE 100MCG/ML 5ML SYR IV PRN (15:19)
[2019-02-11] MEDS ORDERED: HYDROmorphone INJ 1 MG/ML SYRINGE IV PRN (15:19)
[2019-02-11] MEDS ORDERED: MEPERIDINE HCL 25 MG/ML CARP IV PRN (15:19)
[2019-02-11] MEDS ORDERED: ePHEDrine sulfate 50 MG/ML AMP IV PRN (15:19)
[2019-02-11] MEDS ORDERED: SODIUM CHLORIDE 0.9% 250 ML IV PRN ×3 (15:36→17:16)
[2019-02-11] MEDS ORDERED: PHENYLEPHRINE 100MCG/ML 5ML SYR ONE ×2 (15:50→17:42)
[2019-02-11] MEDS ORDERED: ePHEDrine sulfate 50 MG/ML AMP ONE (16:21)
[2019-02-11] MEDS ORDERED: BELLADONNA/OPIUM SUPP 60 MG SUPP PR ONE ×2 (16:32→18:40)
[2019-02-11 17:07] LABS: Hematocrit (blood only) 31.8 % (42-52); Hemoglobin 10.3 g/dL (14.0-18.0)
--- NOTE | 2019-02-11 17:07 | Nephrology Consultation ---
Date of Consultation February 11, 2019 Assessment & Plan (1) Proteinuria, unspecified: 2.4 gm proteinuria in early January on 24 hr urine and spot ratios 500- 1000 mg daily in pt on chronic nsaids as OP. -minimize or better yet stop nsaids -get uacm once gross hematuria clears ideally w/o velasquez -cont lisinopril current dose -would not send serologies yet b/c need more data once acute urologic issues settle -- will definitely need urology f/u -daily bmp -will need f/u at d/c w/ nephro Present on Admission?: Yes (2) Hematuria: s/p urgent cysto today > f/u results -could be from nsaids, from IgA nephropathy at least theoretically; f/u cystoscopy findings and urology recommendations first -hgb daily; transfuse prn Present on Admission?: Yes (3) Osteoarthritis: needs to avoid nsaids at d/c; agree w/ holding them in house Present on Admission?: Yes History of Present Illness Reason for Consultation: proteinuria, hematuria Requesting Physician: Dr Torres Attending Physician: Mary Bonilla MD History of Present Illness 73 y/o M whom I'm asked to see for proteinuria, hematuria. PMH includes HTN, HL, OA, GERD. Takes lisinopril 5 mg daily (started recently) as well as PPI and prn motrin which per his he uses 3-4 times weekly. He started having gross hematuria a few weeks ago w/ initially pink urine. Last evening his hematuria became worse with passing bright red blood and clots. No hx of stones. Has never seen nephrology as OP or urology. Has been getting w/u in past few months by pcp for proteinuria >> had 24 hr urine early january as OP showing 2.4 gm proteinuria; 2 other specimens on file show 500-1000 mg daily proteinuria on spot ratios earlier this year. No UA on file; did have UPEP showing glomerular proteinuria. No serologies on file. eGFR has historically been > 60 consistently. Pt estranged from his family since his youth: no FH known of CKD or ESRD. I saw him in ER this am where he had recently received pain meds; his gave most of hx though he did wake up for exam and to confirm robbins history elements. He c/o worsening low ant abdominal pain and pressure this am and sense that "I got to pee like a racehorse." No rashes, no sob cough or hemoptysis, no edema, no f/c. Urology evaluated the pt and d/t above along w/ recurrent clotting of catheter despite CBI, pt taken to OR for urgent cystoscopy. Allergies Allergy/AdvReac Type Severity Reaction Status Date / Time atorvastatin Allergy Mild Unknown Verified 02/11/19 06:43 Home Medications Home Medications Medication Instructions Recorded Confirmed Type amlodipine 10 mg PO DAILY 02/11/19 02/11/19 History lisinopril 5 mg PO DAILY 02/11/19 02/11/19 History omeprazole 20 mg PO DAILY 02/11/19 02/11/19 History rosuvastatin 5 mg PO DAILY 02/11/19 02/11/19 History Patient History Medical History GERD (gastroesophageal reflux disease) History of Mohs micrographic surgery for skin cancer HLD (hyperlipidemia) Hypertension Osteoarthritis Surgical History History of appendectomy History of cataract extraction History of colonoscopy Status post meniscectomy Family History Other Unknown family medical history Social History Preferred Language: [place] Communication Ability: Effective Pen Tester Required: No Beliefs That Will Affect Care: None marital status: Current Living Situation: Spouse Other Information That Helps Us Care for You: No Feels Safe at Home: Yes Safety Concerns: Feels Safe At This Time Smoking Status: Never smoker Tobacco Type: smokeless tobacco ; Hx Alcohol Use: No Hx Substance Use: No Review of Systems Review of Systems: All systems reviewed & are unremarkable except as noted in HPI & below Physical Exam Constitutional: well developed, well nourished and cooperative; no acute distress lying flat on his L side on 02NC sleeping soundly wakens fully/briefly Eyes: EOM intact bilaterally ENMT: Ears: no external ear abnormality Nose: no external nose abnormality Mouth: + dry oral mucous membranes Neck: no nuchal rigidity Respiratory: normal respiratory effort Auscultation: lungs clear to auscultation bilaterally and + diminished lung sounds Cardiovascular: Rate/Rhythm: regular rate and regular rhythm Extremities: no edema Gastrointestinal (Abdomen): Inspection/Auscultation: normal bowel sounds Percussion/Palpation: abdomen soft; abdomen nontender Musculoskeletal: Extremities: strength 5/5 throughout Skin: no rashes, warm and dry Neurologic: ward, fluent speech, no tremor Psychiatric: Orientation: alert and oriented x 3 Speech: normal rate/rhythm/volume of speech Affect: + anxious affect Genitourinary: on CBI w/ velasquez and ammon blood in bag Results & Data Vital Signs (Past 12 Hours) Vital Signs Temp Pulse Pulse Pulse Resp BP BP 02/11/19 15:16 36.0 C L 89 20 110/70 02/11/19 10:50 36.5 C 76 16 131/79 02/11/19 10:35 87 16 82/56 L 02/11/19 09:20 86 20 167/90 H 02/11/19 07:45 105 H 18 145/101 H 02/11/19 06:33 106 H 22 182/100 H Pulse Ox 02/11/19 15:16 96 02/11/19 10:50 95 02/11/19 10:35 93 02/11/19 09:20 97 02/11/19 07:45 97 02/11/19 06:33 97 Laboratory Results Abnormal lab results 02/11/19 02/11/19 02/11/19 Range/Units 06:46 07:57 07:57 WBC 16.81 H (4.8-10.8) K/uL RBC 4.46 L (4.7-6.1) M/uL Hgb 13.3 L (14.0-18.0) g/dL Hct 39.1 L (42-52) % Immature Gran # (Auto) 0.06 H (0.00-0.02) K/uL Neut # (Auto) 12.60 H (1.4-6.5) K/uL [place] # (Auto) 0.94 H (0.11-0.59) K/uL Sodium 133 L (136-145) mmol/L Glucose 180 H (70-99) mg/dl AST 14 L (15-37) U/L Urine Appearance Turbid A (Clear) Urine Protein Positive H (Negative) Urine RBC >30 H (0-4) /hpf Urine WBC >30 H (0-5) /hpf Ur Epithelial Cells 5-10 H (0-5) /lpf Crossmatch 02/11/19 02/11/19 Range/Units 09:35 12:54 WBC (4.8-10.8) K/uL RBC (4.7-6.1) M/uL Hgb 12.6 L (14.0-18.0) g/dL Hct 37.5 L (42-52) % Immature Gran # (Auto) (0.00-0.02) K/uL Neut # (Auto) (1.4-6.5) K/uL [place] # (Auto) (0.11-0.59) K/uL Sodium (136-145) mmol/L Glucose (70-99) mg/dl AST (15-37) U/L Urine Appearance (Clear) Urine Protein (Negative) Urine RBC (0-4) /hpf Urine WBC (0-5) /hpf Ur Epithelial Cells (0-5) /lpf Crossmatch See Detail Diagnostic Findings CXR > no acute process non con CT abd/pelvis Lower chest: There is a subtle ill-defined area of groundglass parenchymal distortion within the right lower lobe. There are no significant pleural effusions. Liver: There is a 5 mm right lobe hypodensity, likely representing a cyst. Gallbladder: Cholelithiasis. Spleen: Normal in size and attenuation. Pancreas: Unremarkable. Adrenal glands: Unremarkable. Kidneys: There are bilateral indeterminate hyperdense exophytic renal lesions, the largest of which measures 11 mm. A dedicated renal MRI study is recommended in follow-up. No renal calculi are visualized. There is a 5 mm left renal parenchymal calcification. There is mild dilatation of both renal collecting systems, a finding which may in part be secondary to a distended urinary bladder. No ureteral calculi are visualized. Bowel: There are no transition zone to indicate bowel obstruction. There is no evidence of acute diverticulitis. There are no findings to indicate acute appendicitis. Peritoneum: There is no intraperitoneal free air or abdominal ascites. Vasculature: The abdominal aorta is normal in course and caliber. Adenopathy: None. Pelvic viscera: The prostate is enlarged. There is an indwelling Velasquez catheter. There is extensive hyperdense material within the bladder, likely representing hemorrhage. Underlying mass cannot be excluded. Urologic consultation is recommended. Skeletal structures: No destructive osseous lesions are seen. IMPRESSION: 1. Distended urinary bladder with secondary mild hydroureteronephrosis 2. Indwelling Velasquez catheter 3. Extensive hyperdense material within the bladder, consistent with hemorrhage. Underlying mass cannot be excluded. Urological consultation is recommended in follow-up 4. Small bilateral indeterminate hyperdense renal lesions. The largest measures 11 mm. A dedicated renal MRI is recommended in follow-up 5. Cholelithiasis 6. No evidence of bowel obstruction. No evidence of free air (1) Proteinuria, unspecified Proteinuria type: persistent Qualified Code(s): R80.1 - Persistent proteinuria, unspecified (2) Hematuria Hematuria type: gross Qualified Code(s): R31.0 - Gross hematuria (3) Osteoarthritis Osteoarthritis location: unspecified site Osteoarthritis type: primary Qualified Code(s): M19.91 - Primary osteoarthritis, unspecified site
--- NOTE | 2019-02-11 18:38 | Operative Report ---
PG Post Operative Report Pre & Post Diagnosis Operation Date: 02/11/19 12:30 Pre-Op Diagnosis: Large Bladder Tumor, Clot Retention, Acute Blood Loss Anemia Post-Op Diagnosis: Large Bladder Tumor, Clot Retention, Acute Blood Loss Anemia I identified the patient and participated in the time-out.: Yes Procedure Operation Date: 02/11/19 12:30 Actual Procedures p Cystoscopy with Clot Evacuation, Transresection of Large Bladder Tumor, Fulguration(Not Applicable) - Prem Dillon MD Surgeon Flex Davalos II, DO Joint Cutter Machine MD Santana Estimated Blood Loss 750 Findings Consistent with Post-Op Diagnosis Massive bleeding tumor of the left lateral wall and trigone. Approx >18 cm in size with large clot retention. Specimens Bladder tumor lateral wall. Drains [address] Anesthesia Type General Complications none Disposition Disposition: Recovery Room Indications Patient with severe hematuria and acute blood loss anemia requiring urgent clot evacuation and fulguration. Concern for bladder tumor. Risks and benefits discussed at length. Description of Procedure Patient was consented and brought back to the operating room. Patient was placed under anesthesia in the supine position and moved to the dorsal lithotomy position. Patient was prepped and draped in the regular sterile fashion. A time out was completed. Dr Dillon was scrubbed and assisted with the case for the entire case and assisted with management and resection of the tumor. Patient was taken emergently due to severity of hematuria and acute blood loss with retention. A 30degree Cystoscope was placed into the bladder and immediately an extremely large tumor was discovered and the bladder was found to be massively dilated with large clot material. This was evacuated. The tumor filled a majority of the bladder volume and involved the left UO, Trigone, and lateral wall. The right UO was identified as well as the bladder neck, trigone, dome, and the other important landmarks as best able. The tumor base was assessed and major bleeding was noted from multiple areas on the large tumor. The resection scope with the fine bipolar loop was selected. The tumor was meticulous resected. This took a prolonged time to fully resect. Multiple times bleeding had to be controlled. The tumor was able to be fully resected. Tumor bulk was irrigated multiple times. The bladder and tumor base were inspected. Bleeding was cauterized. The bladder neck had to be fulgurated to control prostatic varicosity bleeding. The entire area was inspected. A solitary small posterior wall tumor was also fulgurated. The remaining bulk of the tumor was removed and sent for analysis. The resection bed and edges of the resection were fulgurated and the entire area inspected. The left UO was never fully identified. All bleeding was controlled. The bladder was inspected a final time. Due to the patients blood loss and ABLA during the tumor resection 2 units of pRBC and FFP was transfused by anesthesia. The patient was stable through the case while being critically monitored. With complete resection, bleeding was controlled. The scope was removed. A 24 Fr 3-way hematuria catheter was placed. The patient was cleaned, aroused from anesthesia, and transferred to the pacu in stable condition having tolerated the procedure well with no complications. I was present and participated in all aspects of the procedure. The patient will be monitored in the PACU until transferred. I attest to the content of the Intraoperative Record and any orders documented therein. Any exceptions are noted below.
[2019-02-11 19:04] LABS: iSTAT Creatinine 1.1 mg/dl (0.6-1.3); iSTAT Hemoglobin 10.2 g/dl (14.0-18.0); iSTAT Ionized Calcium 1.21 mmol/l (1.12-1.32); iSTAT Potassium 4.4 mEq/L (3.3-5.0)
[2019-02-11 19:10] LABS: Hematocrit (blood only) 35.4 % (42-52); Hemoglobin 11.9 g/dL (14.0-18.0)
--- NOTE | 2019-02-11 19:48 | Anesthesiology Progress Note ---
Date of Service February 11, 2019 Anesthesia Post Procedure Vital Signs Vital Signs: Temp Pulse Pulse Pulse Resp BP BP 02/11/19 19:25 85 12 135/79 02/11/19 19:15 36.9 C 96 H 19 149/87 H 02/11/19 19:05 88 12 134/87 02/11/19 18:55 94 H 13 172/86 H 02/11/19 18:45 97 H 16 162/92 H 02/11/19 18:39 36.3 C L 105 H 17 155/95 H 02/11/19 15:16 36.0 C L 89 20 02/11/19 10:50 36.5 C 76 16 02/11/19 10:35 87 16 82/56 L 02/11/19 09:20 86 20 02/11/19 07:45 105 H 18 02/11/19 06:33 106 H 22 182/100 H BP Pulse Ox 02/11/19 19:25 93 02/11/19 19:15 97 02/11/19 19:05 95 02/11/19 18:55 100 02/11/19 18:45 100 02/11/19 18:39 98 02/11/19 15:16 110/70 96 02/11/19 10:50 131/79 95 02/11/19 10:35 93 02/11/19 09:20 167/90 H 97 02/11/19 07:45 145/101 H 97 02/11/19 06:33 97 Pain Intensity Abdomen: Pain Intensity: 4 Transfer of Care Handoff Completed per policy Notes Mental Status: alert / awake / arousable and participated in evaluation Patient Amnestic to Procedure: Yes Nausea / Vomiting: adequately controlled Pain: adequately controlled Airway Patency, RR, SpO2: stable & adequate BP & HR: stable & adequate Hydration State: stable & adequate Anesthetic Complications: no major complications apparent and Pt Satisfied with anesthetic care
[2019-02-11] MEDS ORDERED: SODIUM CHLORIDE 0.9% 1000ML 1,000 ML IV SCH (21:00)
[2019-02-12 00:39] LABS: Hematocrit (blood only) 30.9 % (42-52); Hemoglobin 10.1 g/dL (14.0-18.0)
[2019-02-12 06:48] LABS: Basophils # (auto) 0.02 K/uL (0-0.2); Basophils % (auto) 0.2 %; Eosinophils # (auto) 0.11 K/uL (0-0.5); Eosinophils % (auto) 0.9 %; Hematocrit (blood only) 29.7 % (42-52); Immature Granulocytes # (auto) 0.03 K/uL (0.00-0.02); Immature Granulocytes % (auto) 0.3 %; Lymphocytes # (auto) 1.95 K/uL (1.2-3.4); Lymphocytes % (auto) 16.4 %; Mean Corpuscular Hemoglobin 29.4 pg (25-34); Mean Corpuscular Hgb Conc 33.7 g/dL (32-36); Mean Corpuscular Volume 87.4 fL (80-100); Mean Platelet Volume 8.4 fL (7.4-10.4); Monocytes # (auto) 1.21 K/uL (0.11-0.59); Monocytes % (auto) 10.2 %; Neutrophils # (auto) 8.59 K/uL (1.4-6.5); Platelet Count 201 K/uL (130-400); RDW Standard Deviation 44.7 fL (36.4-46.3); White Blood Count 11.91 K/uL (4.8-10.8)
[2019-02-12 07:16] LABS: BUN Creatinine Ratio 10.7 (10-20); Calcium 8.1 mg/dl (8.5-10.1); Creatinine Clr Calc Pharmacy 75.4 ml/min; Est GFR (African American) 81.8; Est GFR (Non-African American) 70.6; Potassium 3.7 mmol/L (3.5-5.1)
[2019-02-12 08:24] LABS: Estimated Average Glucose 114 mg/dl; Hemoglobin A1C 5.6 % (4.5-5.6)
[2019-02-12] MEDS: ROSUVASTATIN CALCIUM 5 MG TAB PO SCH (08:57)
[2019-02-12] MEDS: lisinopriL 5 MG TAB PO SCH (08:57)
[2019-02-12] MEDS: PANTOprazole 40 MG TAB PO SCH (08:57)
[2019-02-12] MEDS: AMLODIPINE BESYLATE 5 MG TAB PO SCH (08:57)
[2019-02-12] MEDS ORDERED: lisinopriL 5 MG TAB PO SCH (09:00)
--- NOTE | 2019-02-12 09:00 | Hospitalist Progress Note ---
Date of Service February 12, 2019 Assessment & Plan (1) Hematuria: Mr. Zendejas is a 73-year-old male who has significant past medical history of HTN, HLD, GERD, OA who presents to [facility] ED secondary to hematuriac clots x1 day. S/P Clot removal and TURBT sec to bladder tumor-Await Path CBI IV morphine 4mg q4hr prn severe pain monitor H&H 2/2 to blood loss from hemorrhage in bladder (2) Leukocytosis: Improving on Periop Cipro no s/sx of infection monitor cbc (3) Proteinuria, unspecified: Patient with evidence of significant proteinuria in outpatient setting On 03/11/2018 protein to creatinine ratio 500, 09/20/2018 1000, 01/08/2019 urine protein 24hrs 2464 nephrology on case baseline cr 1.1 (4) Constipation: Patient last BM 4 days ago, which is unusual for him Start bowel regimen of Miralax and senna once patient no longer NPO (5) Hypertension: continue amlodipine and lisinopril with approp hold parameters monitor (6) HLD (hyperlipidemia): continue crestor (7) GERD (gastroesophageal reflux disease): continue PPI (8) DVT prophylaxis: SCD/TEDS, no chemoprophylaxis in setting of active bleeding Disposition: Home tomorrow, CBI clear Follow up: PCP Dr. Koehler upon discharge along with urology and nephrology ROS-No Headache, No Visual Changes, No Nausea, No Vomiting, No Fever, No Chills, No Neck Pain or Stiffness, No Chest Pain, No Palpitations, No SOB, No MARCUS, No Cough, No Sputum, No Wheezing, No Abdominal Pain, No Diarrhea, No Hematemesis, No Hemoptysis, No Unexpected Weight Loss, No Flank pain, No Melena, No He matochezia, No Frequency, No Urgency, No Burning, No Hematuria, No Rashes, No Diaphoresis. Appetite is Normal Physical Exam Gen-AAO x 3, NAD, Afebrile, [place]-NCAT, EOMI, PERRLA, Anicteric Sclera, No Posterior Pharyngeal Erythema Neck-Supple, No JVD, No Thyromegaly, No Masses, No LAD, No Bruits Lungs-Clear to Auscultation Bilaterally, No Rales, No Rhonchi, No Wheezing, No Crepitus Chest-No S4, +S1, +S2, No S3, No Murmurs, No Rubs, No Gallops, No Ectopy Abdomen-Soft, Bowel Sounds Present, Non Tender, Non Distended, No Hepatomegaly, No Splenomegaly, No Palpable Masses, No Rebound, No Rigidity, No Guarding Musculoskeletal-Full Range of Motion Bilaterally, No CVAT Extremities-No Cyanosis, No Clubbing, No Edema Nuero-Cranial Nerves II-XII grossly intact, Motor WNL, DTRs WNL, Strength WNL, Non Focal Psych-Normal Mood Results & Data Vital Signs (Past 12 Hours) Vital Signs Temp Pulse Pulse Resp BP Pulse Ox 02/12/19 08:08 36.8 C 89 20 138/76 93 02/12/19 03:15 36.9 C 91 H 18 116/74 97 02/11/19 23:15 37 C 102 H 18 136/67 97 02/11/19 22:29 36.7 C 110 H 18 133/79 97 02/11/19 21:39 36.9 C 101 H 18 106/75 95 02/11/19 21:27 36.9 C 95 H 16 136/75 95 (1) Hematuria Hematuria type: gross Qualified Code(s): R31.0 - Gross hematuria (2) Proteinuria, unspecified Proteinuria type: persistent Qualified Code(s): R80.1 - Persistent proteinuria, unspecified
--- NOTE | 2019-02-12 09:00 | Urology Progress Note ---
Date of Service February 12, 2019 Assessment & Plan (1) Hematuria: (2) Bladder tumor: (3) Clot retention of urine: 73yo M admitted with clot retention, POD #1 s/p emergent cystoscopy reveals very large bladder tumor, ABLA requiring PRBC and FFP transfusion. Pain and urgency much improved. Okay to titrate CBI to light pink, clear. Discussed plan of care thus far with , Keiry. Will discuss possible need for staging imaging today given profound bladder tumor discovered yesterday with Dr. Dillon/Dr. Davalos. Pt is understandably very upset over this news. He was planning to be a kidney donor for a close friend in the near future. He understands this is now on hold indefinitely. Will continue to monitor closely. Subjective 73yo M POD #1 s/p emergent cystoscopy with Clot Evacuation, Transresection of Large Bladder Tumor, Fulguration by Dr. Davalos and Dr. Dillon. Please see procedure notes for details. In summary, an extremely large tumor was discovered and the bladder was found to be massively dilated with large clot material which was evacuated. The tumor filled a majority of the bladder volume and involved the left UO, Trigone, and lateral wall. Pt received 2 units PRBCs and 2 units FFPs given intraoperatively. approx 750cc EBL. Specimen sent for pathology. Pt resting comfortably this AM, CBI running at fast rate, draining clear. No family at bedside, however I called his Keiry with updates thus far. He was tearful when receiving updates however understanding. Denies n/v/f/c. Uneventful night last night. Review of Systems Review of Systems: All systems reviewed & are unremarkable except as noted in HPI & below Physical Exam Physical Exam: A&Ox3 Resp rate regular Abd soft, nontender 3way catheter, CBI running at fast rate, draining clear yellow Results & Data Vital Signs (Past 12 Hours) Vital Signs Temp Pulse Pulse Resp BP Pulse Ox 02/12/19 08:08 36.8 C 89 20 138/76 93 02/12/19 03:15 36.9 C 91 H 18 116/74 97 02/11/19 23:15 37 C 102 H 18 136/67 97 02/11/19 22:29 36.7 C 110 H 18 133/79 97 02/11/19 21:39 36.9 C 101 H 18 106/75 95 02/11/19 21:27 36.9 C 95 H 16 136/75 95 PG Care Time/CCT Total # of Minutes Spent Total Time Spent with Patient: Total time spent is greater than 50% in coordination of care (as documented) at patient's floor/unit and/or counseling patient: (1) Hematuria Hematuria type: gross Qualified Code(s): R31.0 - Gross hematuria
[2019-02-12 13:10] LABS: Hematocrit (blood only) 29.9 % (42-52)
[2019-02-13 07:02] LABS: Hemoglobin 10.1 g/dL (14.0-18.0); Mean Corpuscular Hemoglobin 29.5 pg (25-34); Mean Corpuscular Hgb Conc 33.7 g/dL (32-36); Mean Corpuscular Volume 87.7 fL (80-100); Mean Platelet Volume 8.4 fL (7.4-10.4); Platelet Count 197 K/uL (130-400); RDW Standard Deviation 45.2 fL (36.4-46.3); Red Blood Count 3.42 M/uL (4.7-6.1); White Blood Count 11.43 K/uL (4.8-10.8)
[2019-02-13 07:30] LABS: Albumin Level 2.8 gm/dl (3.4-5.0); BUN Creatinine Ratio 10.9 (10-20); Calcium 8.5 mg/dl (8.5-10.1); Creatinine Clr Calc Pharmacy 73.3 ml/min; Est GFR (African American) 79.1; Est GFR (Non-African American) 68.2; Potassium 3.6 mmol/L (3.5-5.1)
[2019-02-13 07:37] LABS: Albumin Globulin Ratio 0.9 (0.9-2); Bilirubin,Total 0.9 mg/dl (0.2-1); Total Protein 5.8 gm/dl (6.4-8.2)
[2019-02-13] MEDS: ROSUVASTATIN CALCIUM 5 MG TAB PO SCH (09:29)
[2019-02-13] MEDS: AMLODIPINE BESYLATE 5 MG TAB PO SCH (09:29)
[2019-02-13] MEDS: PANTOprazole 40 MG TAB PO SCH (09:29)
[2019-02-13] MEDS: lisinopriL 5 MG TAB PO SCH (09:29)
--- NOTE | 2019-02-13 11:29 | Hospitalist Progress Note ---
Date of Service February 13, 2019 Assessment & Plan (1) Hematuria: Mr. Zendejas is a 73-year-old male who has significant past medical history of HTN, HLD, GERD, OA who presents to [facility] ED secondary to hematuriac clots x1 day. S/P Clot removal and TURBT sec to bladder tumor-Await Path CBI IV morphine 4mg q4hr prn severe pain monitor H&H 2/2 to blood loss from hemorrhage in bladder (2) Leukocytosis: Improving on Periop Cipro no s/sx of infection monitor cbc (3) Proteinuria, unspecified: Patient with evidence of significant proteinuria in outpatient setting On 03/11/2018 protein to creatinine ratio 500, 09/20/2018 1000, 01/08/2019 urine protein 24hrs 2464 nephrology on case baseline cr 1.1 (4) Constipation: Bowel regimen of Miralax and senna once patient no longer NPO (5) Hypertension: continue amlodipine and lisinopril with approp hold parameters monitor (6) HLD (hyperlipidemia): continue crestor (7) GERD (gastroesophageal reflux disease): continue PPI (8) DVT prophylaxis: SCD/TEDS, no chemoprophylaxis in setting of active bleeding Labs Checked Disposition: Homewhen cleared by , CBI clear Follow up: PCP Dr. Koehler upon discharge along with urology and nephrology ROS-No Headache, No Visual Changes, No Nausea, No Vomiting, No Fever, No Chills, No Neck Pain or Stiffness, No Chest Pain, No Palpitations, No SOB, No MARCUS, No Cough, No Sputum, No Wheezing, No Abdominal Pain, No Diarrhea, No Hematemesis, No Hemoptysis, No Unexpected Weight Loss, No Flank pain, No Melena, No Hematochezia, No Frequency, No Urgency, No Burning, No Hematuria, No Rashes, No Diaphoresis. Appetite is Normal Physical Exam Gen-AAO x 3, NAD, Afebrile, [place]-NCAT, EOMI, PERRLA, Anicteric Sclera, No Posterior Pharyngeal Erythema Neck-Supple, No JVD, No Thyromegaly, No Masses, No LAD, No Bruits Lungs-Clear to Auscultation Bilaterally, No Rales, No Rhonchi, No Wheezing, No Crepitus Chest-No S4, +S1, +S2, No S3, No Murmurs, No Rubs, No Gallops, No Ectopy Abdomen-Soft, Bowel Sounds Present, Non Tender, Non Distended, No Hepatomegaly, No Splenomegaly, No Palpable Masses, No Rebound, No Rigidity, No Guarding Musculoskeletal-Full Range of Motion Bilaterally, No CVAT Extremities-No Cyanosis, No Clubbing, No Edema Nuero-Cranial Nerves II-XII grossly intact, Motor WNL, DTRs WNL, Strength WNL, Non Focal Psych-Normal Mood Results & Data Vital Signs (Past 12 Hours) Vital Signs Temp Pulse Resp BP Pulse Ox 02/13/19 07:34 36.9 C 64 16 138/80 99 02/12/19 23:40 37.0 C 86 16 132/79 92 (1) Hematuria Hematuria type: unspecified type Qualified Code(s): R31.9 - Hematuria, unspecified (2) Proteinuria, unspecified Proteinuria type: persistent Qualified Code(s): R80.1 - Persistent proteinuria, unspecified
--- NOTE | 2019-02-13 12:07 | Urology Progress Note ---
Date of Service February 13, 2019 Assessment & Plan (1) Clot retention of urine: 73yo M admitted with clot retention, underwent emergent cystoscopy, fulguration. Found to have very large bladder tumor. Pt evaluated by Dr. Davalos at bedside as well today. Doing much better today, tolerating catheter well. CBI on clamp for almost 24hours. Okay to take down CBI, plug irrigation port. Pt to d/c home today from perspective. Will arrange outpatient TOV and followup with Dr. Davalos to discuss pathology. Thank you for allowing us to participate in the acute care of Mr. Zendejas. Please reconsult us with additional questions, concerns or changes in patient status. Subjective 73yo M POD #2 s/p emergent cystoscopy with Clot Evacuation, Transresection of Large Bladder Tumor, Fulguration by Dr. Davalos and Dr. Dillon. Pt resting comfortably this AM, CBI clamped since yesterday approx 430PM. Draining clear yellow, very slight pink tinged. Uneventful evening, no issues. VSS, afebrile. H/H remains stable at 10/30. Review of Systems Review of Systems: All systems reviewed & are unremarkable except as noted in HPI & below Physical Exam Physical Exam: A&Ox3 resp rate reg abd soft, nontendre velasquez draining clear yellow, CBI clamped Results & Data Vital Signs (Past 12 Hours) Vital Signs Temp Pulse Resp BP Pulse Ox 02/13/19 07:34 36.9 C 64 16 138/80 99 PG Care Time/CCT Total # of Minutes Spent Total Time Spent with Patient: Total time spent is greater than 50% in coordination of care (as documented) at patient's floor/unit and/or counseling patient:
--- NOTE | 2019-02-13 13:46 | Discharge Summary ---
Date of Service February 13, 2019 Admission HPI Per Admitting Provider Mr. Zendejas is a 73-year-old male who has significant past medical history of HTN, HLD, GERD, OA who presents to [facility] ED secondary to hematuria x1 day. He elicits over the past 3 to 4 days he noticed a pink- colored urine which he attributed to drinking cranberry juice. When he woke up this morning and tried to urinate he had ammon blood. He also elicits over the past 3 to 4 days increased urgency and frequency with urination. He denies ever having something similar in the past. He denies any flank pain, abdominal pain, dysuria, fever, sweats, lightheadedness, dizziness, syncope, chest pain, shortness breath, palpitations, nausea, vomiting. He does admit to chills. Appetite has otherwise been normal. Last BM was 4 days ago which is unusual per patient. Approximately 3 days ago he did have significant acid reflux and did take Pepto-Bismol which occasionally constipates him. He continues to complain of feeling like he has to urinate despite Velasquez catheter being present. He denies any weight loss or weight gain. Has a prior history of tobacco abuse with smokeless tobacco but quit in . He denies any alcohol use. His family history is unknown, "I left home at the age of 20, so I do not know." He denies any personal history of any recurrent UTIs, BPH, prostate cancer. He does have a history of basal cell carcinoma which was removed locally. He does have a history of hypertension in which he does monitor her but his blood pressure at home. He does have a log with him on his phone. His blood pressures consistently in the 120s over 80s. He recently was placed on lisinopril approximately 4 months ago. He feels like ever since being started on this medication he has noticed a change in his urinary habits. He stopped taking this medication approximately 3 to 4 days ago, and now his symptoms have significantly worsened. He does elicit he is very active at baseline. He is able to walk a flight of stairs or 4 city blocks without any chest pain or s hortness breath. "I could walk 4 to 5 miles without any chest pain or shortness of breath." In ED nurse states she had significant difficulty placing Velasquez. A triple-lumen had to be placed with continuous irrigation. Upon my evaluation patient had 2200ml hematuria drained. Upon initial evaluation H&H 13.3 and 39.1, WBC 16.8 1K, platelet 300, sodium 133, K3.6, BUN 16, creatinine 1.11, glucose 188. Urinalysis significant for protein, plus RBC and WBC, called to interpret secondary to turbidity. CT abdomen pelvis performed which revealed: Distended urinary about bladder with secondary mild hydroureteronephrosis, extensive hyperdense material within the bladder consistent with hemorrhage, underlying mass cannot be excluded. Small bilateral indeterminate hypodense renal lesions, largest measuring 11 mm. A dedicated renal MRI is recommended. He received oral Cipro 500 mg, 1.5 mg IV Dilaudid, 1 g IV Tylenol, 0.4 mg Flomax and IV Zofran while in ED. Admission Exam Per Admitting Provider Constitutional: WD/WN, vitals as above, NAD, sitting up in bed, pleasant, conversing easily Head: Normocephalic, Atraumatic Eyes: PERRL, conjunctivae normal, anicteric sclerae ENMT: external ear and nose normal, oropharynx normal Neck: trachea midline, no thyromegaly normal visual inspection Respiratory: normal respiratory effort, lungs clear to auscultation, no wheeze, rales, rhonchi. Normal insp/exp effort, no accessory muscle use Cardiovascular: RRR, no murmur, no edema Vessels: no JVD or carotid bruit Chest: normal inspection of chest Abdomen: firm, mildly distended, tender to palpation throughout, "it makes me feel like I have to urinate," +BSx4, no hepatosplenomegaly, no rebound, guarding, rigidity Musculoskeletal: no cyanosis or clubbing, extremities motor strength 5/5 Skin: no rashes, warm and dry normal turgor Neurologic: PERRL, EOMI, accommodation nl, no face palsy, no dysarthria CN's II-XI intact bilaterally and moves all extremities Psychiatric: A+Ox3, euthymic affect Lymphatic: no cervical or axillary lymphadenopathy : +velasquez cath in place drainage bloody urine Principal Diagnosis Bladder Tumor Leukocytosis HTN HLD GERD OA Discharge Exam Physical Exam Gen-AAO x 3, NAD, Afebrile Head-NCAT, EOMI, PERRLA, Anicteric Sclera, No Posterior Pharyngeal Erythema Neck-Supple, No JVD, No Thyromegaly, No Masses, No LAD, No Bruits Lungs-Clear to Auscultation Bilaterally, No Rales, No Rhonchi, No Wheezing, No Crepitus Chest-No S4, +S1, +S2, No S3, No Murmurs, No Rubs, No Gallops, No Ectopy Abdomen-Soft, Bowel Sounds Present, Non Tender, Non Distended, No Hepatomegaly, No Splenomegaly, No Palpable Masses, No Rebound, No Rigidity, No Guarding Musculoskeletal-Full Range of Motion Bilaterally, No CVAT Extremities-No Cyanosis, No Clubbing, No Edema Nuero-Cranial Nerves II-XII grossly intact, Motor WNL, DTRs WNL, Strength WNL, Non Focal Psych-Normal Mood Discharge Data Allergies Allergy/AdvReac Type Severity Reaction Status Date / Time atorvastatin Allergy Mild Unknown Verified 02/11/19 06:43 Consultations 02/11/19 07:47 Consult Urology Stat 02/11/19 08:28 ED Decision to Admit Stat 02/11/19 10:04 Consult Nephrology Routine 02/11/19 10:58 Consult Case Management - Discharge Planning Routine Procedures Performed Operation Date: 02/11/19 12:30 Actual Procedures p Cystoscopy with Clot Evacuation, Transuretheral Resection of Large Bladder Tumor, Fulguration(Not Applicable) - Prem Dillon MD Ordered Studies 02/11/19 07:00 CT abd pelvis wo con Stat Current Diagnoses Neoplasm of unspecified behavior of bladder (02/11/19) Elevated white blood cell count, unspecified (02/11/19) Hyperlipidemia, unspecified (02/11/19) Essential (primary) hypertension (02/11/19) Gastro-esophageal reflux disease without esophagitis (02/11/19) Constipation, unspecified (02/11/19) Primary osteoarthritis, unspecified site (02/11/19) Gross hematuria (02/11/19) Hematuria, unspecified (02/11/19) Other retention of urine (02/11/19) Persistent proteinuria, unspecified (02/11/19) Proteinuria, unspecified (02/11/19) Encounter for other preprocedural examination (02/11/19) Encounter for prophylactic measures, unspecified (02/11/19) Allergies atorvastatin Allergy (Mild, Verified 01/07/20 06:43) Unknown Height/Weight/Isolation Height 5 ft 10 in Weight 100 kg Chemistry 02/12/19 02/13/19 06:13 06:39 Sodium 137 138 Potassium 3.7 3.6 Chloride 106 106 Carbon Dioxide 26 27 Anion Gap 5.0 4.0 BUN 11 12 Creatinine 1.05 1.08 Glucose 107 H 104 H Microbiology 02/11/19 06:46 Urine,Clean Catch Urine Culture - Final More than three types of organisms present, all moderate counts mixed probable skin meir. No further identifications or sensitivities to follow. Hospital Course (1) Hematuria: Mr. Zendejas is a 73-year-old male who has significant past medical history of HTN, HLD, GERD, OA who presents to [facility] ED secondary to hematuriac clots x1 day. S/P Clot removal and TURBT sec to bladder tumor-Awaiting Path CBI IV morphine 4mg q4hr prn severe pain monitor H&H 2/ to blood loss from hemorrhage in bladder (2) Leukocytosis: Improving on Periop Cipro (3) Proteinuria, unspecified: Patient with evidence of significant proteinuria in outpatient setting On 03/11/2018 protein to creatinine ratio 500, 09/20/2018 1000, 01/08/2019 urine protein 24hrs 2464 nephrology on case baseline cr 1.1 (4) Constipation: Bowel regimen of Miralax and senna (5) Hypertension: continue amlodipine and lisinopril (6) HLD (hyperlipidemia): continue crestor (7) GERD (gastroesophageal reflux disease): continue PPI (8) DVT prophylaxis: SCD/TEDS, no chemoprophylaxis in setting of active bleeding Labs Checked Disposition: Home Today Follow up: PCP Dr. Koehler upon discharge along with urology and nephrology ROS-No Headache, No Visual Changes, No Nausea, No Vomiting, No Fever, No Chills, No Neck Pain or Stiffness, No Chest Pain, No Palpitations, No SOB, No MARCUS, No Cough, No Sputum, No Wheezing, No Abdominal Pain, No Diarrhea, No Hematemesis, No Hemoptysis, No Unexpected Weight Loss, No Flank pain, No Melena, No Hematochezia, No Frequency, No Urgency, No Burning, No Hematuria, No Rashes, No Diaphoresis. Appetite is Normal Physical Exam Gen-AAO x 3, NAD, Afebrile, Velasquez Head-NCAT, EOMI, PERRLA, Anicteric Sclera, No Posterior Pharyngeal Erythema Neck-Supple, No JVD, No Thyromegaly, No Masses, No LAD, No Bruits Lungs-Clear to Auscultation Bilaterally, No Rales, No Rhonchi, No Wheezing, No Crepitus Chest-No S4, +S1, +S2, No S3, No Murmurs, No Rubs, No Gallops, No Ectopy Abdomen-Soft, Bowel Sounds Present, Non Tender, Non Distended, No Hepatomegaly, No Splenomegaly, No Palpable Masses, No Rebound, No Rigidity, No Guarding Musculoskeletal-Full Range of Motion Bilaterally, No CVAT Extremities-No Cyanosis, No Clubbing, No Edema Nuero-Cranial Nerves II-XII grossly intact, Motor WNL, DTRs WNL, Strength WNL, Non Focal Psych-Normal Mood Total Time Total Time Spent Total Time Spent (In Minutes): 40 mins Total Time Includes: Examination of the Patient, Discharge Planning, Medication Reconciliation and Communication With Other Providers Discharge Plan Discharge Items Patient Disposition: Home - Self-Care Reason For Visit: HEMATURIA Discharge Diagnosis: Bladder Tumor Leukocytosis HTN HLD GERD OA Condition on Discharge: Good Activity: Resume your previous activity Lifting: Wait until after follow-up appointment Bathing: No limitations Sexual Activity: Wait until after follow-up appointment Exercise/Sports: Gradually increase as tolerated and Wait until after follow-up appointment Driving/Machine Use: No limitations Weightbearing: Full weightbearing Non-emergency contact: Primary Care Provider, Blocklayer and Urologist Call non-emergency contact if: you have any medication questions Follow-up/Referrals: Symone Koehler DO [Primary Care Provider] - Prem Dillon MD [Physician] - (Call for instructions) Enedina Kerr MD, PhD [Physician] - (Call for instructions) Diet: Regular Addtl Attending Provider Instructions: None Stand-Alone Forms: My [employer], Smoking Cessation Medications and DC Order Prescriptions: Continued rosuvastatin 5 mg tablet 5 mg PO DAILY RF: 0 omeprazole 20 mg capsule,delayed release(DR/EC) 20 mg PO DAILY RF: 0 amlodipine 10 mg tablet PO DAILY RF: 0 lisinopril 5 mg tablet PO RF: 0 Discharge Orders: Discharge Order (Routine); Ordered 02/13/19 Ordered By: Meño Marie Admission Data Admit Date/Time: 02/11/19 09:17 Attending Provider: Meño Marie Admit Provider: Marina Torres Primary Care Provider: Symone Koehler Other Providers: Prem Dillon ; Marina Torres ; Enedina Kerr
== END 2019-02-13 15:19 | disposition home or self-care (01) | DRG 654 ==
LOC: ED 06:26 → SUATTDRO 09:17 → 3W 09:17